=== PATIENT | female | born 1950 | race Caucasian/White ===

== ENCOUNTER 2019-05-30 14:44 | Outpatient (CLI) | payer MEDICARE ==
--- NOTE | 2019-05-30 16:08 | MMO ---
Bilateral MAMMO Bilat Screen [facility]. CLINICAL HISTORY: Patient is 68 years old and is seen for screening. The patient has no family history of breast cancer. The patient has no personal history of cancer. VIEWS: The views performed were: bilateral craniocaudal with tomosynthesis and bilateral mediolateral oblique with tomosynthesis. FILMS COMPARED: The present examination has been compared to prior imaging studies performed at [facility] on 02/01/2013, 02/05/2014, 03/27/2015 and 05/01/2016. This study has been interpreted with the assistance of computer-aided detection. MAMMOGRAM FINDINGS: There are scattered fibroglandular densities. There are no suspicious masses, suspicious calcifications, or new areas of architectural distortion. IMPRESSION: THERE IS NO MAMMOGRAPHIC EVIDENCE OF MALIGNANCY. A ROUTINE FOLLOW-UP MAMMOGRAM IN 1 YEAR IS RECOMMENDED. THE RESULTS OF THIS EXAM WERE SENT TO THE PATIENT. ACR BI-RADS Category 1 - Negative MAMMOGRAPHY NOTE: 1. A negative mammogram report should not delay a biopsy if a dominant of clinically suspicious mass is present. 2. Approximately 10% to 15% of breast cancers are not detected by mammography. 3. Adenosis and dense breasts may obscure an underlying neoplasm. Reported by: BRAXTON FELDER MD Electonically Signed: [id number]
== END 2019-05-30 14:45 | disposition home or self-care (01) ==
LOC: BICMAMMO 14:44
PROVIDERS: ATTEND Internal Medicine
DX: Z12.31 Encounter for screening mammogram for malignant neoplasm of breast (principal)
CPT/HCPCS: 77063; 77067

== ENCOUNTER 2020-01-05 07:14 | Outpatient (CLI) | payer MEDICARE, OTHER ==
[2020-01-05 10:22] LABS: #Eosinphils 0.1 thou/uL (0.0-0.7); #Lymphocytes 1.6 thou/uL (1.20-3.40); #Monocytes 0.4 thou/uL (0.11-0.59); #Neutrophils 2.5 thou/uL (1.40-6.50); %Basophils 0.8 % (0.0-1.0); %Eosinophils 1.2 % (0.0-10.0); %Lymphocytes 35.5 % (21.0-51.0); %Monocytes 7.7 % (0.0-10.0); %Neutrophils 54.8 % (42.0-75.0); Hemoglobin 14.1 g/dL (12.0-16.0); Mean Corpuscular HGB CONC 35.1 g/dL (32.0-36.0); Mean Corpuscular Hemoglobin 31.7 pg (27.0-31.0); Mean Corpuscular Volume 90.4 fL (78.0-98.0); Mean Platelet Volume 7.6 fL (7.4-10.4); Platelet Count 273 thou/uL (130-400); RBC Distribution Width 11.6 % (11.5-14.5); Red Blood Cell (RBC) Count 4.43 mill/uL (4.20-5.40); White Blood Cell (WBC) Count 4.6 thou/uL (4.8-10.8)
[2020-01-05 10:27] LABS: INR-International Normal Ratio 0.9; Prothrombin Time 12.3 sec (12.0-14.7)
[2020-01-05 10:49] LABS: Bacteria/HPF None Seen HPF (None Seen); Bilirubin Negative (Negative); Blood, Urine Negative (Negative); Clarity Clear (Clear); Glucose, Urine (Dipstick) Normal (Negative); Leukocyte 250 Leu/uL (Negative); Nitrite Negative (Negative); Protein, Urine (Dipstick) Negative (Neg-Trace); RBC/HPF 0-3 HPF (0-3); Squamous Epithelial 0-3 HPF (0-3); Urobilinogen Normal mg/dL (Less than 2); WBC/HPF 0-3 HPF (0-3)
[2020-01-05 10:50] LABS: Anion Gap 11 mmol/L (10-20); BUN (Urea Nitrogen) 23 mg/dL (9.8-20.1); Calc. Creatinine Clearance 0 mL/min (70-130); Calcium 9.6 mg/dL (7.8-10.44); Carbon Dioxide 28 mmol/L (23-31); Chloride 105 mmol/L (98-107); Estimated GFR-MDRD 56; Glucose 73 mg/dL (80-115); Potassium 3.9 mmol/L (3.5-5.1); Sodium 140 mmol/L (136-145)
[2020-01-05 18:07] LABS: SARS-CoV-2 MS2 Positive; SARS-CoV-2 N Gene Negative; SARS-CoV-2 S Gene Negative; SARS-CoV-2 orf1ab Negative
== END 2020-01-05 07:15 | disposition home or self-care (01) ==
LOC: LABBT 07:14
PROVIDERS: ATTEND Orthopaedic Surgery
DX: Z01.818 Encounter for other preprocedural examination (principal); Z11.59 Encounter for screening for other viral diseases; M17.11 Unilateral primary osteoarthritis, right knee
CPT/HCPCS: 80048; 81001; 85025; 85610; 87081; 93005; U0003; 87635; 93010

== ENCOUNTER 2020-01-09 06:34 | Observation (INO) | payer MEDICARE ==
[2020-01-05 08:59] VITALS: BMI 29.0
[2020-01-09] MEDS ORDERED: Fentanyl 100 MCG/2 ML VIAL ONE ×3 (07:42→11:35)
[2020-01-09] MEDS ORDERED: Midazolam HCl 2 mg/2 ml Vial ONE (07:42)
[2020-01-09] MEDS ORDERED: Tranexamic Acid 1,000 MG/10 ML VIAL ONE ×3 (07:58→11:33)
[2020-01-09] MEDS ORDERED: Vancomycin 1 GM/200 ML BAG ONE (07:59)
[2020-01-09] MEDS ORDERED: Sodium Chloride 0.9% 100 ML ONE (08:00)
[2020-01-09] MEDS ORDERED: Acetaminophen 325 MG TAB PO PRN (09:21)
[2020-01-09] MEDS ORDERED: Zolpidem Tartrate 5 MG TAB PO PRN ×2 (09:21→11:31)
[2020-01-09] MEDS ORDERED: Promethazine HCl 25 MG/ML VIAL IM PRN ×3 (09:21→11:31)
[2020-01-09] MEDS ORDERED: HYDROcodone/Acetaminophen 10/325 mg Tablet PO PRN ×4 (09:21→11:31)
[2020-01-09] MEDS ORDERED: Ondansetron PF 4 MG/2 ML Vial IVP PRN ×2 (09:21→11:31)
[2020-01-09] MEDS ORDERED: diphenhydrAMINE 25 MG CAP PO PRN (09:21)
[2020-01-09] MEDS ORDERED: traMADol HCl 50 MG TAB PO PRN ×3 (09:21→11:31)
[2020-01-09] MEDS ORDERED: Bupivacaine HCl 0.5%/Epinephrine 1:200,000/PF 30 ml Vial ONE (10:05)
[2020-01-09] MEDS ORDERED: EPHEDRINE 25 MG/5 ML SYRINGE ONE (10:05)
[2020-01-09] MEDS ORDERED: Lidocaine 1% PF 5 ML VIAL ONE (10:05)
[2020-01-09] MEDS ORDERED: Dexamethasone 20 MG/5 ML VIAL ONE (10:05)
[2020-01-09] MEDS ORDERED: Ondansetron PF 4 MG/2 ML Vial ONE (10:05)
[2020-01-09] MEDS ORDERED: Ropivacaine 0.2% HCl/PF (40 MG/20 ML VIAL) ONE (10:05)
[2020-01-09] MEDS ORDERED: PROPOFOL 200 MG/20 ML VIAL ONE (10:05)
[2020-01-09] MEDS ORDERED: Promethazine HCl 25 MG/ML VIAL SLOW IVP PRN (11:16)
[2020-01-09] MEDS ORDERED: Ondansetron HCl/PF 4 MG/2 ML Vial IVP PRN (11:16)
--- NOTE | 2020-01-09 11:26 | OP ---
DATE OF PROCEDURE: 01/09/2020 This is Giovanny Mcgill PA-C dictating a report for Joey Quiñones MD. PREOPERATIVE DIAGNOSIS: End-stage tricompartmental osteoarthritis, right knee. POSTOPERATIVE DIAGNOSIS: End-stage tricompartmental osteoarthritis, right knee. PROCEDURE PERFORMED: Cemented cruciate-sparing computer-assisted navigated right total knee arthroplasty. WINDOWS MOBILE DEVELOPER: Giovanny Mcgill PA-C ANESTHESIA: General via LMA, augmented with indwelling adductor canal block and a single-shot sciatic block. COMPONENTS USED: [employer] Triathlon size 3 cemented cruciate-sparing femoral component with a size 3 cemented primary tibial base plate, 9-mm polyethylene fixed bearing insert, and S27 patellar button. FINDINGS: End-stage severe degenerative tricompartmental disease, [id number]-[id number] arthrosis, periarticular osteophyte formation, hypertrophic synovium, and changes consistent with degenerative genu varum. TOURNIQUET TIME: 45 minutes at 300 mmHg. ESTIMATED BLOOD LOSS: Less than 100. DRAINS: None. SPECIMENS: None. COMPLICATIONS: None. COUNTS: Correct. INPUT: 500 mL of crystalloid. OUTPUT: 200 mL of clear yellow urine. INDICATIONS FOR SURGERY: Arlene is a 69-year-old female who has had progressive right knee pain and problems with standing and walking for the last 5 to 7 years. She has failed conservative management and elected to proceed with total knee arthroplasty as definitive treatment of her pain. PROCEDURE IN DETAIL: After informed consent was obtained in the preoperative holding area, the patient was taken to the operative suite where general anesthesia was induced. Once adequate level of general anesthesia was obtained, the patient was positioned and a well-padded tourniquet was placed around the right proximal thigh. The right lower extremity was then prepped and draped in the usual sterile fashion. Prior to exsanguination, a time-out was called and all members of the surgical team agreed upon site, surgeon, and patient. The extremity was then exsanguinated and the tourniquet was raised. A midline longitudinal incision was then made directly over the patella extending 2 fingerbreadths above the superior pole of the patella and 2 fingerbreadths inferior to the inferior patellar pole of the patella. Deeper subcutaneous layers were dissected sharply and local bleeding was controlled with Bovie electrocautery. A quad tendon longitudinal split was then made sharply and a median parapatellar arthrotomy was carried out both sharp and with Bovie electrocautery, carried down to 1 fingerbreadth medial to the tibial tubercle. The knee was then placed into flexion and the patella was everted nicely, and a copious fat pad ectomy was performed, allowing for greater exposure of the tibia. The computer-assisted distal femoral fiducial was then placed and pinned firmly, and the distal femoral cutting guide was pinned firmly into place. The oscillating saw was then used to remove the appropriate amount of bone. The 4-in-1 cutting block was then placed on the distal femur and the oscillating saw was used to remove the appropriate amount of bone off the anterior, posterior, and chamfer cuts. After completion of bone cuts, the anterior cruciate ligament was resected sharply and the posterior cruciate ligament retractor was placed and the tibia was subluxed for better exposure. Partial meniscectomies were carried out, and the tibial computer-assisted fiducial was pinned, and the cutting guide was placed. Oscillating saw was then used to remove the bone, with Hohmann retractors used to take care and protect the collateral ligaments. After the tibial resection was performed, a laminar biscuit packer was placed in between the freshened bone cuts. The knee placed at 90 degrees and further bilateral meniscectomies were carried out, and the curved osteotome and curettage were used to remove any excess bone spurs in the posterior compartment. The trial femoral component, tibial baseplate were placed with the appropriate polyethylene trial insert with an appropriate polyethylene spacer and patellar button. The knee was taken through full range of motion with flexion and extension from 0 to 90 degrees and patellar broach squarely in the trochlea without any squinting or subluxation noted. The knee was also stable to varus and valgus stressing at 0, 15, 45, and 90 degrees of flexion. The drawer was negative. All trial components were then removed and the keel punch was used to provide the appropriate defect in the tibia with a mallet. The freshened bone cuts were copiously irrigated with pulsatile lavage of about 1.5 L to remove all excess debris. The freshened bone cuts were then dried with suction and lap sponge. The knee was placed in flexion and retractors were placed to provide access to all bone cuts. Tobramycin-impregnated methyl methacrylate cement was then placed on the freshened bone cuts and implants which were malleted firmly into place. Curettage and Witt elevators were used to remove any excess bone cement. The knee was placed into full extension and the patellar button was placed under compression, and the cement was allowed to cure. Once completed, the components were again taken through full range of motion and copious irrigation of the knee was carried out with another liter of normal saline. All components were inspected fully with full range of motion and varus and valgus stressing. There was no laxity noted and full extension was observed clinically. Primary closure was accomplished with #2 interrupted Vicryl stitch of the arthrotomy defect. This was oversewn with a #2 running Quill barbed stitch. The subcutaneous layer was then closed with a running 0 barbed Monocryl stitch and skin closure accomplished with a running subcuticular 3-0 Monocryl barbed Quill stitch and augmented with cement on the skin. Tourniquet was lowered. Good spontaneous return of distal pulses was noted clinically and a sterile dressing was applied to the incision. The procedure was terminated without any complications. The patient was awakened in the operative suite and taken to the recovery room in stable condition. Job ID: [id number]
[2020-01-09] MEDS ORDERED: Ropivacaine HCl/PF 250 ML in Premix Bag 1 BAG NERVE BLCK SCH (11:31)
[2020-01-09] MEDS ORDERED: Fentanyl 100 MCG/2 ML VIAL SLOW IVP PRN (11:32)
--- NOTE | 2020-01-09 12:33 | RAD ---
RADIOGRAPH RIGHT KNEE 2 VIEWS: DATE: 01/09/2020 HISTORY: 69-year-old female with chronic right knee pain, status post surgery FINDINGS: Resurfacing changes of articular surfaces of distal femur, patella, and tibial plateau. Metallic pros theses cover the resurfaced articular surfaces of distal femur and tibial plateau. Subcutaneous emphysema in the anterior soft tissues of the thigh and knee indicate recent status of surgery. IMPRESSION: Very recently status post total right knee replacement arthroplasty.
--- NOTE | 2020-01-09 13:37 | PDOC.HOSPP ---
- Subjective Encounter Date: 01/09/20 Encounter Time: 13:37 Subjective: Patient seen and examined for med mngt. Pain controlled. No CP/SOB or palpitations. No new complaints. No overnight events - Objective Vital Signs & Weight: Vital Signs (12 hours) Temp Pulse Resp BP Pulse Ox 01/09/20 12:50 96.8 F L 64 18 115/70 96 Weight Weight 149 lb Additional Labs: Laboratory Tests 04/21/13 01/05/20 08:41 09:37 BUN 23 H Est GFR (Non-Af Amer) 54 Creatinine 0.98 Laboratory Tests 01/05/20 01/05/20 09:37 09:37 Hgb 14.1 Sodium 140 Creatinine 0.98 EKG Reviewed by me: Yes (SR) Hospitalist ROS - Review of Systems Respiratory: denies: cough, dry, shortness of breath, hemoptysis, SOB with excertion, pleuritic pain, sputum, wheezing, other Cardiovascular: denies: chest pain, palpitations, orthopnea, paroxysmal noc. dyspnea, edema, light headedness, other - Exam General Appearance: NAD Heart: RRR, no gallops Respiratory: no wheezes, no ronchi Gastrointestinal: non-tender, non-distended, normal bowel sounds Extremities: no cyanosis, no clubbing Hosp A/P - Plan DVT proph w/SCDs HTN HLD DJD CKD 2 PLAN: Cont HCTZ Cont Losartan Add Holding parameter to above meds Cont supportive care IS DVT prophylaxis AM labs Full code DPOA - spouse Thank you for this consultation. Will follow.
[2020-01-09] MEDS: Sodium Chloride 0.9% 1,000 ML IV SCH ×3 (13:53→18:56)
[2020-01-09] MEDS: Ketorolac Tromethamine 30 MG/ML VIAL IVP SCH ×2 (14:02→21:04)
[2020-01-09] MEDS ORDERED: CEFAZOLIN 2 GM in Premix Bag 1 BAG IVPB SCH (18:00)
[2020-01-09] MEDS: Aspirin 81 mg Enteric Coated Tablet PO SCH (20:46)
[2020-01-10] MEDS ORDERED: CEFAZOLIN 2 GM in Premix Bag 1 BAG IVPB SCH ×2 (02:00→18:00)
[2020-01-10] MEDS: Ketorolac Tromethamine 30 MG/ML VIAL IVP SCH ×3 (05:35→22:00)
[2020-01-10 06:52] LABS: Hemoglobin 12.4 g/dL (12.0-16.0); Mean Corpuscular HGB CONC 32.4 g/dL (32.0-36.0); Mean Corpuscular Hemoglobin 29.4 pg (27.0-31.0); Mean Corpuscular Volume 90.9 fL (78.0-98.0); Mean Platelet Volume 7.4 fL (7.4-10.4); Platelet Count 250 thou/uL (130-400); RBC Distribution Width 11.6 % (11.5-14.5); White Blood Cell (WBC) Count 10.6 thou/uL (4.8-10.8)
[2020-01-10] MEDS: Aspirin 81 mg Enteric Coated Tablet PO SCH ×2 (08:42→22:00)
[2020-01-10] MEDS: Atorvastatin Calcium 40 MG TAB PO SCH (08:42)
[2020-01-10] MEDS: Multivitamin W/ Minerals 1 TAB PO SCH (08:42)
[2020-01-10] MEDS: Ferrous Gluconate 324 MG TAB PO SCH ×2 (08:42→18:07)
[2020-01-10] MEDS: Senokot S 8.6-50 MG TAB PO SCH ×2 (08:42→22:00)
[2020-01-10] MEDS: Losartan 25 MG TAB PO SCH (08:45)
[2020-01-10] MEDS: Hydrochlorothiazide 25 MG TAB PO SCH (08:45)
[2020-01-10] MEDS ORDERED: Hydrochlorothiazide 25 MG TAB PO SCH (09:00)
[2020-01-10] MEDS ORDERED: Losartan 25 MG TAB PO SCH (09:00)
[2020-01-10] MEDS ORDERED: Aspirin Chewable 81 MG TAB PO SCH (09:00)
[2020-01-10] MEDS ORDERED: hydrALAZINE 20 MG/ML VIAL SLOW IVP PRN (09:02)
--- NOTE | 2020-01-10 11:27 | PDOC.HOSPP ---
- Subjective Encounter Date: 01/10/20 Encounter Time: 11:27 Subjective: Patient seen and examined for med mngt. Pain controlled. No CP. No new complaints. No overnight events - Objective Vital Signs & Weight: Vital Signs (12 hours) Temp Pulse Resp BP Pulse Ox 01/10/20 08:00 97.6 F 84 18 144/92 H 98 01/10/20 04:19 98.4 F 73 16 118/69 95 Weight Weight 149 lb I&O: 01/09/20 01/10/20 01/11/20 06:59 06:59 06:59 Intake Total 2820 Output Total 1550 Balance 1270 Result Diagrams: 01/10/20 06:43 Hospitalist ROS - Review of Systems Respiratory: denies: cough, dry, shortness of breath, hemoptysis, SOB with excertion, pleuritic pain, sputum, wheezing, other Cardiovascular: denies: chest pain, palpitations, orthopnea, paroxysmal noc. dyspnea, edema, light headedness, other - Medication Medications: Active Medications Generic Name Dose Route Start Last Admin Trade Name Freq PRN Reason Stop Dose Admin Hydrocodone Bitart/Acetaminophen 1 tab 01/09/20 11:31 01/09/20 18:44 [place] 10/325 PO 1 tab Q4H PRN Administration Pain (1-3) Aspirin 81 mg 01/09/20 21:00 01/10/20 08:42 Ecotrin PO 81 mg BID NICOLE Administration Atorvastatin Calcium 40 mg 01/10/20 09:00 01/10/20 08:42 Lipitor PO 40 mg DAILY NICOLE Administration Ferrous Gluconate 324 mg 01/10/20 08:00 01/10/20 08:42 Fergon PO 324 mg BID-WM NICOLE Administration Hydrochlorothiazide 12.5 mg 01/10/20 09:00 01/10/20 08:45 Hydrochlorothiazide PO 12.5 mg DAILY NICOLE Administration Iron/Minerals/Multivitamins 1 tab 01/10/20 09:00 01/10/20 08:42 Theragran M PO 1 tab DAILY NICOLE Administration Ketorolac Tromethamine 30 mg 01/09/20 14:00 01/10/20 05:35 Toradol IVP 01/11/20 14:01 30 mg Q8HR NICOLE Administration Losartan Potassium 50 mg 01/10/20 09:00 01/10/20 08:45 Cozaar PO 50 mg QAM NICOLE Administration Senna/Docusate Sodium 2 tab 01/10/20 09:00 01/10/20 08:42 Senokot S PO 2 tab BID NICOLE Administration - Exam General Appearance: NAD Heart: RRR, no gallops Respiratory: CTAB, no rales Gastrointestinal: soft, non-distended Extremities: no cyanosis, no edema Neurological: no new deficit Hosp A/P - Plan DVT proph w/SCDs HTN HLD DJD CKD 2 PLAN: Cont HCTZ/Losartan Cont supportive care IS DVT prophylaxis Will sign off. Please call if needed.
--- NOTE | 2020-01-10 12:14 | PRG ---
DATE OF SERVICE: 01/10/2020 SUBJECTIVE: Arlene is a 69-year-old female, postop day #1 from a right total knee arthroplasty. She is doing very well. She has no complaints. OBJECTIVE: VITAL SIGNS: Temperature 97.6, pulse 84, respiratory rate 18, blood pressure is 144/92. GENERAL: She is alert and oriented to person, place, time, and situation. Responsive and appropriate with the examiner. EXTREMITIES: Her incision is clean, closed without any erythema. No strike through. She is neurovascularly intact in the right lower extremity. LABORATORY DATA: Hemoglobin and hematocrit 12.4 and 38.2. IMPRESSION: A 69-year-old female, postop day #1 right total knee arthroplasty, doing well. PLAN: Continue current care. Probable discharge to home tomorrow. Job ID: [id number]
[2020-01-11] MEDS: Ketorolac Tromethamine 30 MG/ML VIAL IVP SCH (05:01)
[2020-01-11 06:15] LABS: Hemoglobin 12.7 g/dL (12.0-16.0); Mean Corpuscular HGB CONC 32.7 g/dL (32.0-36.0); Mean Corpuscular Hemoglobin 29.9 pg (27.0-31.0); Mean Corpuscular Volume 91.3 fL (78.0-98.0); Mean Platelet Volume 7.8 fL (7.4-10.4); Platelet Count 235 thou/uL (130-400); RBC Distribution Width 11.8 % (11.5-14.5); Red Blood Cell (RBC) Count 4.23 mill/uL (4.20-5.40); White Blood Cell (WBC) Count 6.6 thou/uL (4.8-10.8)
[2020-01-11] MEDS: Losartan 25 MG TAB PO SCH (08:41)
[2020-01-11] MEDS: Multivitamin W/ Minerals 1 TAB PO SCH (08:41)
[2020-01-11] MEDS: Senokot S 8.6-50 MG TAB PO SCH (08:41)
[2020-01-11] MEDS: Hydrochlorothiazide 25 MG TAB PO SCH (08:41)
[2020-01-11] MEDS: Ferrous Gluconate 324 MG TAB PO SCH (08:41)
[2020-01-11] MEDS: Aspirin 81 mg Enteric Coated Tablet PO SCH (08:42)
[2020-01-11] MEDS: Atorvastatin Calcium 40 MG TAB PO SCH (08:42)
[2020-01-11 12:00] VITALS: BP 144/84; TEMP 98
--- NOTE | 2020-01-12 12:15 | DIS ---
DATE OF ADMISSION: 01/09/2020 DATE OF DISCHARGE: 01/11/2020 DISCHARGE DISPOSITION: To home. ADMISSION DIAGNOSIS: End-stage right knee tricompartmental osteoarthritis. DISCHARGE DIAGNOSIS: End-stage right knee tricompartmental osteoarthritis. OPERATIVE PROCEDURE: Right total knee arthroplasty. CONSULTANTS: [facility], [facility]. BRIEF CLINICAL HISTORY: The patient is a 69-year-old female who was admitted to [facility] and underwent the above elective procedure on the date of admission without intra-, cheri-, or postoperative complication. The hospital course was unremarkable. At the time of discharge, the patient is afebrile, ambulatory without assistance utilizing a rolling walker in a full weightbearing fashion, tolerating a regular diet, and voiding without difficulty. The patient's incision is clean and closed without any erythema. DISCHARGE MEDICATIONS: Please see medication reconciliation form. We will be happy to see the patient on an as-needed basis between now and the patient's next scheduled appointment. CONDITION ON DISCHARGE: Stable. PROGNOSIS: Good. Job ID: [id number]
== END 2020-01-11 12:37 | disposition home or self-care (01) ==
LOC: SDC 06:34 → SURG B 09:21 → INTOOBSV 13:02 → UNDOADMOB 13:02 → UNDODISOB 01-11 12:37
PROVIDERS: ADMIT Orthopaedic Surgery; ATTEND Orthopaedic Surgery
PROC: 0SRC0J9 Replacement of Right Knee Joint with Synthetic Substitute, Cemented, Open Approach (ICD-10-PCS; principal; 2020-01-09)
PROC: 8E0YXBZ Computer Assisted Procedure of Lower Extremity (ICD-10-PCS; 2020-01-09)
DX: M17.11 Unilateral primary osteoarthritis, right knee (principal); I12.9 Hypertensive chronic kidney disease with stage 1 through stage 4 chronic kidney disease, or unspecified chronic kidney disease; N18.2 Chronic kidney disease, stage 2 (mild); E78.5 Hyperlipidemia, unspecified; Z79.82 Long term (current) use of aspirin; Z79.899 Other long term (current) drug therapy
CPT/HCPCS: 20985; 27447; 73560; 85027 ×2; 97110 ×2; 97116 ×3; 97139 ×4; 97530 ×2; 98960; C1713; C1776; 36415; J0670; J0690; J1100; J1885; J2001; J2250; J2405; J2704; J2795; J3010; J3370; J3490

== ENCOUNTER 2020-06-11 08:37 | Outpatient (CLI) | payer MEDICARE ==
--- NOTE | 2020-06-11 09:12 | MMO ---
Bilateral MAMMO Bilat Screen [facility]. CLINICAL HISTORY: Patient is 69 years old and is seen for screening. The patient has no family history of breast cancer. The patient has no personal history of cancer. VIEWS: The views performed were: bilateral craniocaudal with tomosynthesis and bilateral mediolateral oblique with tomosynthesis. FILMS COMPARED: The present examination has been compared to prior imaging studies performed at [facility] on 05/30/2019, and at [facility] on 02/05/2014, 03/27/2015 and 05/01/2016. This study has been interpreted with the assistance of computer-aided detection. MAMMOGRAM FINDINGS: There are scattered fibroglandular densities. There are stable benign appearing calcifications seen in both breasts. There are no suspicious masses, suspicious calcifications, or new areas of architectural distortion. IMPRESSION: THERE IS NO MAMMOGRAPHIC EVIDENCE OF MALIGNANCY. A ROUTINE FOLLOW-UP MAMMOGRAM IN 1 YEAR IS RECOMMENDED. THE RESULTS OF THIS EXAM WERE SENT TO THE PATIENT. ACR BI-RADS Category 2 - Benign finding MAMMOGRAPHY NOTE: 1. A negative mammogram report should not delay a biopsy if a dominant of clinically suspicious mass is present. 2. Approximately 10% to 15% of breast cancers are not detected by mammography. 3. Adenosis and dense breasts may obscure an underlying neoplasm. Reported by: LESLIE GOODWIN MD Electonically Signed: [id number]
== END 2020-06-11 08:38 | disposition home or self-care (01) ==
LOC: BICMAMMO 08:37
PROVIDERS: ATTEND Internal Medicine
DX: Z12.31 Encounter for screening mammogram for malignant neoplasm of breast (principal)
CPT/HCPCS: 77063; 77067

== ENCOUNTER 2021-06-16 09:30 | Outpatient (CLI) | payer MEDICARE | END 2021-06-16 09:31 | disposition home or self-care (01) | LOC: BICMAMMO 09:30 | PROVIDERS: ATTEND Internal Medicine | DX: Z12.31 Encounter for screening mammogram for malignant neoplasm of breast (principal) | CPT/HCPCS: 77063; 77067 ==

== ENCOUNTER 2022-07-03 09:29 | Outpatient (CLI) | payer MEDICARE | END 2022-07-03 09:30 | disposition home or self-care (01) | LOC: BICMAMMO 09:29 | PROVIDERS: ATTEND Internal Medicine | DX: Z12.31 Encounter for screening mammogram for malignant neoplasm of breast (principal) | CPT/HCPCS: 77063; 77067 ==

== ENCOUNTER 2024-09-14 08:06 | Outpatient (CLI) | payer MEDICARE | END 2024-09-14 08:07 | disposition home or self-care (01) | LOC: BICMAMMO 08:06 | PROVIDERS: ATTEND Family Medicine | DX: Z12.31 Encounter for screening mammogram for malignant neoplasm of breast (principal) | CPT/HCPCS: 77063; 77067 ==